=== PATIENT | female | born 1985 | race Caucasian/White ===

== ENCOUNTER 2018-12-05 07:43 | Inpatient (IN) ==
[2018-12-05] MEDS ORDERED: OXYTOCIN 30 UNITS/500 ML BAG IV PRN ×2 (08:25→22:10)
--- NOTE | 2018-12-05 08:34 | History & Physical Report ---
Date of Service December 05, 2018 Assessment & Plan (1) Elective induction of labor planned: Patient is a 33 yo at 40.1 wks, h/o macrosomia, normal EFW this time VSS Afebrile, doing well FHR reassuring GBS negative Cervix unfavorable Plan to admit, monitor, cervical ripening with Cervidil Anticipate All questions were answered (2) History of macrosomia in infant in prior , currently : History of Present Illness Chief Complaint: Scheduled IOL Primary Care Provider: NO PCP Patient is a 33 yo at 40.1 wks, who is scheduled for IOL at term due to h/o macrosomia with her last baby No complaints No ctxs/ LOF/VB +FM No NDIAYE/ Change in vision/ N&V/ epig or RUQ pain Her has been uncomplicated GBS negative Her second baby was 9' 12", 41.3 wks, IOL, no shoulder dystocia, no lacerations She had US during this on 11/21 and EFW was WNL Allergies Allergy/AdvReac Type Severity Reaction Status Date / Time No Known Allergies Allergy Mild Unverified 07/22/11 21:27 Home Medications Home Medications Medication Instructions Recorded Confirmed Type PNV cmb#95-ferrous fumarate-FA 1 tab PO DAILY 02/22/18 02/22/18 History [] Patient History Medical History History of miscarriage Family History Other Family history non-contributory Social History Preferred Language: [place] Communication Ability: Effective Wagon Driller Required: No Beliefs That Will Affect Care: None marital status: Current Living Situation: Spouse Other Information That Helps Us Care for You: No Feels Safe at Home: Yes Safety Concerns: Feels Safe At This Time Smoking Status: Never smoker Hx Alcohol Use: No Hx Substance Use: No OB History 2 FT 3 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
[2018-12-05] MEDS ORDERED: DINOPROSTONE 10 MG INSERT PV ONE (08:45)
[2018-12-05 08:54] LABS: Hematocrit (blood only) 34.1 % (37-47); Hemoglobin 11.1 g/dL (12.0-16.0); Mean Corpuscular Volume 84.6 fL (80-100); Mean Platelet Volume 9.8 fL (7.4-10.4); Platelet Count 213 K/uL (130-400); RDW Coefficient of Variation 14.6 % (11.5-14.5); RDW Standard Deviation 45.4 fL (36.4-46.3); Red Blood Count 4.03 M/uL (4.2-5.4)
--- NOTE | 2018-12-05 08:56 | Obstetrical Progress Note ---
Date of Service December 05, 2018 Subjective Cervidil is in Discussed what to expect FHR reassuring Continue to monitor Results & Data Vital Signs (Past 12 Hours) Vital Signs Temp Pulse Resp BP 12/05/18 07:48 110 H 127/74 12/05/18 07:45 36.6 C 18
[2018-12-05 09:10] LABS: Mean Corpuscular Hgb Conc 32.6 g/dL (32-36)
--- NOTE | 2018-12-05 15:09 | Obstetrical Progress Note ---
Date of Service December 05, 2018 Subjective Patient is reevaluated She feels well, no complaint No ctxs/ cramping/ nor tightening No LOF/VB +FM VSS Afebrile FHR reassuring No ctxs on toco Plan to continue with cervical ripening and remove cervidil at 12 hour jayla Continue to monitor Results & Data Vital Signs (Past 12 Hours) Vital Signs Temp Pulse Resp BP 12/05/18 12:05 36.7 C 98 H 20 125/76 12/05/18 07:48 36.6 C 110 H 18 127/74 12/05/18 07:45 36.6 C 18
--- NOTE | 2018-12-05 22:12 | Obstetrical Progress Note ---
Date of Service December 05, 2018 Subjective Patient is reevaluated Cervidil was removed, she ate dinner She has not been feeling ctxs, mild cramps, but has been irregular No LOF/VB +FM VSS Afebrile VE; 2-3 cm/ 30%/ -3, softer and stretchable FHR has been categ I Plan to start pitocin and AROM when able Anticipate Results & Data Vital Signs (Past 12 Hours) Vital Signs Temp Pulse Resp BP 12/05/18 21:20 20 12/05/18 21:00 20 12/05/18 20:15 18 12/05/18 18:39 89 123/73 12/05/18 18:30 18 12/05/18 17:00 20 12/05/18 15:30 20 12/05/18 15:15 36.6 C 20 12/05/18 15:12 87 123/75 12/05/18 12:05 36.7 C 98 H 20 125/76
[2018-12-05] MEDS: LACTATED RINGER'S 1,000 ML IV PRN (22:21)
[2018-12-06] MEDS ORDERED: BUPIVACAINE 0.25% 30 ML VIAL ONE (03:42)
[2018-12-06] MEDS ORDERED: ePHEDrine sulfate 50 MG/ML AMP ONE (03:42)
[2018-12-06] MEDS ORDERED: fentaNYL citrate 100 MCG/2 ML VIAL ONE (03:43)
[2018-12-06] MEDS ORDERED: fentaNYL 2MCG/ML ROPIV 1.25MG/ML 100 ML BAG EPI ONE (03:43)
[2018-12-06] MEDS: LACTATED RINGER'S 1,000 ML IV PRN (03:43)
[2018-12-06] MEDS ORDERED: DiphenhydrAMINE HCL 50 MG/ML VIAL IV PRN (03:47)
[2018-12-06] MEDS ORDERED: NALOXONE HCL 1 MG in SODIUM CHLORIDE 0.9% 1000ML 1,000 ML IV PRN (03:47)
[2018-12-06] MEDS ORDERED: NALBUPHINE HCL INJ 10 MG/ML AMP IV PRN (03:47)
[2018-12-06] MEDS ORDERED: ONDANSETRON INJ 2 MG/ML 2 ML VIAL IV PRN (03:47)
[2018-12-06] MEDS ORDERED: ePHEDrine sulfate 50 MG/ML AMP IV PRN (03:47)
[2018-12-06] MEDS ORDERED: fentaNYL 2MCG/ML ROPIV 1.25MG/ML 100 ML BAG EPI PRN (03:47)
[2018-12-06] MEDS ORDERED: NALOXONE HCL 0.4 MG/1 ML VIAL/CARP IV PRN (03:47)
--- NOTE | 2018-12-06 03:53 | Anesthesiology Consultation ---
Date of Service December 06, 2018 Assessment & Plan (1) Encounter for pre-operative examination: Chart Review Chart Review: Patient NOT seen in Pre Admission Testing and Acceptable Risk for Labor Epidural Consults Requested none History Height/Weight Height: 5 ft 7 in Weight: 103.873 kg Allergies Allergy/AdvReac Type Severity Reaction Status Date / Time No Known Allergies Allergy Mild Unverified 07/22/11 21:27 Medications Home Medications Medication Instructions Recorded Confirmed Last Taken PNV cmb#95-ferrous fumarate-FA 1 tab PO DAILY 02/22/18 12/05/18 1 Day Ago [] ~12/04/18 cholecalciferol (vitamin D3) 2,000 unit PO DAILY 12/05/18 12/05/18 1 Day Ago ~12/04/18 omega 7-bjh-olu-fish oil [Fish Oil] 1 cap PO DAILY 12/05/18 12/05/18 3 Days Ago ~12/02/18 Active Medications Generic Name Dose Route Start Last Admin Trade Name Freq PRN Reason Stop Dose Admin Lactated Ringer's 1,000 mls @ 150 mls/hr 12/05/18 08:25 12/06/18 03:49 Lr IV 12/07/18 08:24 999 mls/hr .[id number] PRN Infusion L&D Protocol Protocol Oxytocin 30 units in 500 mls @ 0 mls/hr 12/05/18 22:10 12/06/18 04:08 Pitocin IV 12/07/18 22:09 0.54 units/hr .Q0M PRN 9 mls/hr Labor Induction/Augmentation Titration Protocol 0 UNITS/HR Past Medical History Medical History [place] teeth extracted 2003 History of miscarriage SAB X3; ',,18 Exercise / Class Metabolic Activity II 4-5 Yardwork/Stairs/Walk up hill Past Family History Family History Other Family history non-contributory Past Surgical History Surgical History History of laparoscopic cholecystectomy 2011 Past Anesthesia History No Hx of Anesthesia Complications and No Family Hx of Anesthesia Complications History of PONV No Hx of PONV and No Hx of Motion Sickness Social History Smoking Status: Never smoker Hx Alcohol Use: No Hx Substance Use: No Physical Exam Vital Signs Last Vital Signs Temp 36.4 C L 12/06/18 03:43 Pulse 100 H 12/06/18 04:07 Resp 20 12/06/18 04:03 BP 139/87 12/06/18 04:07 Pulse Ox 98 12/06/18 04:05 Testing Laboratory Results 12/05/18 08:44 Blood Type O Positive 12/05/18 08:44 Antibody Screen NEGATIVE 12/05/18 08:44
[2018-12-06] MEDS ORDERED: OXYTOCIN 30 UNITS/500 ML BAG IV PRN (06:53)
[2018-12-06] MEDS ORDERED: HYDROCORTISONE ACETATE 25 MG SUPP PR PRN (06:53)
[2018-12-06] MEDS ORDERED: BISACODYL 10 MG SUPP PR PRN (06:53)
[2018-12-06] MEDS ORDERED: ACETAMINOPHEN 325 MG TAB PO PRN (06:53)
[2018-12-06] MEDS ORDERED: DIPHTHERIA/TETANUS/PERTUSSIS 0.5 ML SYR/VIAL IM ONE (06:53)
[2018-12-06] MEDS ORDERED: SUPERCREAM 0.870% 15 GM JAR EXT PRN (06:53)
[2018-12-06] MEDS ORDERED: BENZOCAINE 20% AER SPR 82.5 GM CAN EXT PRN (06:53)
[2018-12-06] MEDS ORDERED: LACTATED RINGER'S 1,000 ML IV SCH (07:00)
--- NOTE | 2018-12-06 12:06 | Delivery Summary ---
DATE OF OPERATION: 12/06/2018 TIME OF DELIVERY OF BABY: 6:30 a.m. TIME OF DELIVERY OF PLACENTA: 6:49 a.m. DETAILS OF DELIVERY: The patient was found to be fully dilated and desired to push. She pushed for 2 times and delivered the head without difficulty and then turtle sign was noted and anterior / left shoulder was checked to be stuck behind the pubic bone. Unable to deliver with minimal traction. Then the nurses were noted of shoulder dystocia. The patient's bed was was lowered down, Agueda maneuver and suprapubic pressure were applied, unable to deliver the anterior shoulder. Then the Posterior/ right arm and shoulder were reached and delivered without difficulty and then the anterior shoulder and the whole baby were delivered without difficulty within les than a minute. The baby was handed off to the mother where mouth and nose were suctioned. Cord was clamped x2 and cut. Then baby started crying and moving vigorously. Cord blood was obtained and vagina and perineum were checked for lacerations. There was only small first-degree laceration on the posterior fourchette which was repaired with 3-0 Vicryl in a running fashion. The placenta was found to be in the vagina, delivered spontaneous as intact and complete. Uterus was explored, found to be empty. Lower segment was cleared of all clots and debris. Fundus was firm. EBL was 200 mL. Mom and baby tolerated the procedure well. Baby was a viable male infant. Apgars 8/9. Weight was 3865 gr. No other complications happened. Mom and baby doing well. At the end of the procedure, sponge, lap, needle count was correct x2. I was present during whole procedure. I attest to the content of the Intraoperative Record and any orders documented therein. Any exceptions are noted below. MTDD
--- NOTE | 2018-12-06 12:14 | Anesthesia Procedure Note ---
Date of Service December 06, 2018 Anesthesia Post Epidural Note Vital Signs Vital Signs: Temp Pulse Resp BP Pulse Ox 37.1 C 97 H 18 125/60 97 12/06/18 05:45 12/06/18 09:06 12/06/18 05:43 12/06/18 09:06 12/06/18 07:20 Pain Intensity Bilateral Lower Abdomen: Pain Intensity: 4 Notes Mental Status: alert / awake / arousable Nausea / Vomiting: adequately controlled Pain: adequately controlled Airway Patency, RR, SpO2: stable & adequate BP & HR: stable & adequate Hydration State: stable & adequate Neuraxial Anesthesia: was administered and sensory block is resolving Anesthetic Complications: no major complications apparent and Pt Satisfied with anesthetic care Epidural: Removed without complications and With tip intact
[2018-12-06] MEDS: IBUPROFEN 600 MG TAB PO PRN ×2 (12:45→18:15)
[2018-12-06] MEDS: PRENATAL VITAMIN 1 TAB PO SCH (12:45)
[2018-12-06] MEDS: FERROUS SULFATE 325 MG TAB PO SCH (12:45)
[2018-12-06] MEDS: DOCUSATE SODIUM 100 MG CAP PO SCH ×2 (12:46→20:40)
[2018-12-07 06:45] LABS: Hematocrit (blood only) 28.6 % (37-47); Hemoglobin 9.2 g/dL (12.0-16.0); Mean Corpuscular Hgb Conc 32.2 g/dL (32-36); Mean Corpuscular Volume 85.6 fL (80-100); Mean Platelet Volume 10.1 fL (7.4-10.4); Platelet Count 183 K/uL (130-400); RDW Coefficient of Variation 15.1 % (11.5-14.5); RDW Standard Deviation 46.7 fL (36.4-46.3); Red Blood Count 3.34 M/uL (4.2-5.4); White Blood Count 8.47 K/uL (4.8-10.8)
[2018-12-07] MEDS: DOCUSATE SODIUM 100 MG CAP PO SCH (08:12)
[2018-12-07] MEDS: FERROUS SULFATE 325 MG TAB PO SCH (08:12)
[2018-12-07] MEDS: PRENATAL VITAMIN 1 TAB PO SCH (08:12)
[2018-12-07] MEDS: IBUPROFEN 600 MG TAB PO PRN ×2 (08:12→17:59)
--- NOTE | 2018-12-07 09:18 | Obstetrical Progress Note ---
Date of Service December 07, 2018 Physical Exam Physical Exam: abdomen soft and non tender vaginal bleeding scant hgb 9.2 no calf tenderness ambulating well Results & Data Vital Signs (Past 12 Hours) Vital Signs Temp Pulse Resp BP 12/07/18 03:00 36.5 C 100 H 18 112/74 12/06/18 23:25 36.4 C L 92 H 18 119/76
[2018-12-07] MEDS ORDERED: BISACODYL 5 MG TABEC PO SCH (20:00)
== END 2018-12-07 18:45 | disposition home or self-care (01) | DRG 807 ==
LOC: 4S1 07:43 → 4S2 12-06 10:31

== ENCOUNTER 2018-12-13 15:06 | Inpatient (IN) ==
[2018-12-13 15:35] LABS: Basophils # (auto) 0.03 K/uL (0-0.2); Basophils % (auto) 0.3 %; Eosinophils % (auto) 1.1 %; Hemoglobin 12.9 g/dL (12.0-16.0); Immature Granulocytes # (auto) 0.02 K/uL (0.00-0.02); Immature Granulocytes % (auto) 0.2 %; Lymphocytes # (auto) 1.86 K/uL (1.2-3.4); Lymphocytes % (auto) 20.3 %; Mean Corpuscular Hgb Conc 33.1 g/dL (32-36); Mean Corpuscular Volume 85.2 fL (80-100); Mean Platelet Volume 9.3 fL (7.4-10.4); Monocytes # (auto) 0.46 K/uL (0.11-0.59); Neutrophils # (auto) 6.69 K/uL (1.4-6.5); Neutrophils % (auto) 73.1 %; Platelet Count 299 K/uL (130-400); RDW Standard Deviation 46.2 fL (36.4-46.3); Red Blood Count 4.58 M/uL (4.2-5.4); White Blood Count 9.16 K/uL (4.8-10.8)
[2018-12-13 15:46] LABS: Partial Thromboplastin Time 26.4 Seconds (21.0-31.0); Prothrombin Time 9.9 Seconds (9.0-12.0)
[2018-12-13 15:52] LABS: Alanine Aminotransferase 53 U/L (12-78); Albumin Level 3.4 gm/dl (3.4-5.0); Aspartate Aminotransferase 18 U/L (15-37); Blood Urea Nitrogen 17 mg/dl (7-18); Calcium 9.5 mg/dl (8.5-10.1); Carbon Dioxide 26 mmol/L (21-32); Chloride 109 mmol/L (98-107); Creatinine Clr Calc Pharmacy 98.5 ml/min; Est GFR (African American) 91.2; Est GFR (Non-African American) 78.7; Glucose 88 mg/dl (70-99); Potassium 3.7 mmol/L (3.5-5.1); Sodium 142 mmol/L (136-145)
[2018-12-13 15:57] LABS: Albumin Globulin Ratio 0.8 (0.9-2); Alkaline Phosphatase 132 U/L (45-117); Bilirubin,Total 0.4 mg/dl (0.2-1); Creatine Kinase 60 U/L (26-192); Globulin 4.2 gm/dl (2.5-4.0); Total Protein 7.6 gm/dl (6.4-8.2); Troponin I < 0.015 ng/ml (0-0.045)
--- NOTE | 2018-12-13 16:03 | Emergency Department Note ---
History of Present Illness General Chief complaint: Chest Pain Stated complaint: SHARP PAIN IN LEFT SIDE Time Seen by Provider: 12/13/18 15:14 History of Present Illness Maximum Pain Intensity: 5 33-year-old female who presents to emergency department with her for evaluation of left-sided chest/rib discomfort that wraps around to the back. The patient reports that her symptoms started approximately 36 hours ago. The patient reports that the pain does seem to be worsened with movement and deep breathing. She denies any falguni shortness of breath. The patient had an uncomplicated vaginal delivery 7 days ago. Patient still has some mild vaginal bleeding, but denies any lower back pain or lower abdominal pain. The patient denies any fever or chills, nausea or vomiting. She also denies any urinary symptoms or diarrhea. The patient reports that she did have some swelling of the right lower extremity earlier in a week, but that went away. The patient rates her discomfort a 5 out of 10. She denies any alleviating factors for the pain. The patient denies any personal or strong family history of cardiopulmonary disease. Home Medications Home Medications Medication Instructions Recorded Confirmed Type PNV cmb#95-ferrous fumarate-FA 1 tab PO DAILY 02/22/18 12/13/18 History [] cholecalciferol (vitamin D3) 2,000 unit PO DAILY 12/05/18 12/13/18 History Allergies Allergy/AdvReac Type Severity Reaction Status Date / Time No Known Allergies Allergy Verified 12/13/18 17:46 Past Med/Surg History Medical History Vitamin D insufficiency History of miscarriage SAB X3; '12,'18,'18 Surgical History History of laparoscopic cholecystectomy 2012 [place] teeth extracted 2003 Family History Father Alive and well Mother Alive and well Social History Preferred Language: Faroese Communication Ability: Effective Mid Level Net Developer Required: No Beliefs That Will Affect Care: None marital status: Current Living Situation: Spouse Other Information That Helps Us Care for You: No Feels Safe at Home: Yes Safety Concerns: Feels Safe At This Time Smoking Status: Never smoker Second Hand Exposure: No ; Hx Alcohol Use: No Hx Substance Use: No Review of Systems HEENT: Denies dizziness, visual problems, hearing loss, tinnitus. Denies difficulty swallowing or oral lesions. PULMONARY: Denies cough, shortness of breath, sputum production or hemoptysis. CARDIOVASCULAR: Denies recent palpitations, dyspnea on exertion, orthopnea or peripheral edema. GASTROINTESTINAL: Denies diarrhea, constipation, nausea, vomiting, or abdominal pain. GENITOURINARY: Denies dysuria, frequency, urgency or nocturia. NEUROLOGIC: Denies history of epilepsy, CVA, TIA or chronic headaches. MUSCULOSKELETAL: Denies history of joint tenderness/swelling. SKIN: Denies rashes or lesions. PSYCHIATRIC: Denies history of depression or mental illness. ENDOCRINE: Denies history of diabetes or thyroid disorders. Physical Exam Vital Signs Vital Signs - 24 hr 12/13/18 15:10 12/13/18 15:25 12/13/18 15:28 Temperature 36.4 C L Temperature Source Oral Oral Sepsis Recent Fever Within 48 Hours No Sepsis Action Taken by Nursing No Action Required Pulse Rate 95 H Pulse Rhythm Regular Pulse Strength Normal Respiratory Rate 16 Respiratory Effort / Characteristics Non-Labored Respiratory Depth Normal Normal Respiratory Pattern Regular Blood Pressure 138/87 Blood Pressure Mean 104 Blood Pressure Position Sitting Pulse Oximetry 97 Oxygen Delivery Method Room Air Room Air CONSTITUTIONAL: Healthy and well nourished. Alert and oriented X 3. Patient does not appear in any acute distress. HEENT: Normocephalic, atraumatic. Pupils equal, round and reactive. No scleral icterus or conjunctival injection. NECK: Full active range of motion without discomfort. LYMPHATICS: No cervical chain adenopathy. RESPIRATORY: Clear to auscultation bilaterally with no wheezing, crackles, rhonchi or stridor. Deep breathing does worsen the patient's discomfort. CARDIOVASCULAR: Regular rate and rhythm with no murmurs, rubs or gallops. GASTROINTESTINAL: Bowel sounds present in all quadrants. No left upper quadrant tenderness to palpation of the abdomen. Negative CVA tenderness. MUSCULOSKELETAL: Full range of motion of all joints without discomfort. Patient has no lower extremity pretibial pitting edema or dependent changes. INTEGUMENTARY: No rash or other significant dermatologic conditions noted. HEMATOLOGIC: No ecchymosis or petechiae. PSYCHIATRIC: Positive affect. NEUROLOGIC: No focal neurologic deficits noted. Course Patient history and physical exam were performed. Nurse's notes were reviewed. Vital signs were reviewed and were normal. O2 saturation is normal. IV access was established, and labs were drawn. The patient refused any analgesics or antiemetics. An initial ECG showed a normal sinus rhythm without any obvious abnormalities. Portable chest x-ray did not show evidence for consolidation, pneumothorax or obvious cardiac prominence. Labs were reviewed to show a normal troponin, CBC and CMP. D-dimer was markedly elevated, and felt to be significantly elevated more than what would be expected with a normal vaginal delivery. Given the patient's symptoms, and discussion with both the patient and with shared medical decision making, the patient elected to undergo CT angiography to rule out pulmonary embolus. The CT scan does show multiple segmental and subsegmental pulmonary emboli, as well as pleural effusions bilaterally. The case was further discussed with Dr. Castelan, ED attending physician, who recommended contacting [facility] [employer] and [facility] hospitalist service. Appropriate initial treatment, preferably IV heparin. Bilateral lower extremity venous Dopplers were performed, and did not show any underlying DVT in either extremity. The case was further discussed with Dr. Harrington, [facility], who agrees with admission given her risk for bleed. Case was then discussed with the [facility] hospitalist service, who agrees with administering heparin bolus for treatment. The patient was ordered standard adult heparin bolus prior to transfer of care to the hospitalist service. Please see their dictation for further treatment and final disposition. Administered Medications Acetaminophen (Tylenol) 650 mg PO Q4H PRN PRN Reason: Pain or Fever Stop: 01/12/19 19:29 Last Admin: 12/13/18 20:37 Dose: 650 mg Documented by: [id number] Enoxaparin Sodium (Lovenox) 90 mg SQ Q12H [facility] Stop: 01/12/19 19:59 Last Admin: 12/14/18 09:30 Dose: 90 mg Documented by: [id number] Admin: 12/13/18 20:39 Dose: 90 mg Documented by: [id number] Prenat Multivit/Parc/Iron/Folic Ac ( Vitamin) 1 tab PO DAILY DEE DEE Stop: 01/13/19 08:59 Last Admin: 12/14/18 09:31 Dose: 1 tab Documented by: [id number] Vitamin D (Vitamin D3) 2,000 units PO DAILY [facility] Stop: 01/13/19 08:59 Last Admin: 12/14/18 09:31 Dose: 2,000 units Documented by: [id number] Warfarin Sodium (Coumadin) 5 mg PO DAILY@1600 DEE DEE Stop: 01/12/19 19:29 Last Admin: 12/13/18 21:29 Dose: 5 mg Documented by: [id number] Discontinued Medications Enoxaparin Sodium (Lovenox 1 Mg/Kg Providers Use Dosing Set) 95 mg 1 mg/kg (95 mg) SC Q12H [facility] Stop: 12/13/18 20:00 Last Admin: 12/13/18 20:25 Dose: Not Given Documented by: [id number] Enoxaparin Sodium (Lovenox) 90 mg SQ Q12H [facility] Stop: 12/13/18 18:16 Last Admin: 12/13/18 20:24 Dose: Not Given Documented by: [id number] Heparin Sodium (Porcine) (Heparin Sodium (Porcine)) Confirm Administered Dose 5,000 units .ROUTE .STK-MED ONE Stop: 12/13/18 18:01 Last Admin: 12/13/18 18:16 Dose: Not Given Documented by: [id number] Heparin Sodium/Dextrose () 1 ea IV NOW STA; Protocol Stop: 12/13/18 17:24 Last Admin: 12/13/18 20:21 Dose: Not Given Documented by: [id number] Hydromorphone HCl (Dilaudid) 0.25 mg IV NOW STA Stop: 12/14/18 01:07 Last Admin: 12/14/18 01:17 Dose: Not Given Documented by: [id number] Hydromorphone HCl (Dilaudid) 0.5 mg IV NOW STA Stop: 12/14/18 01:17 Last Admin: 12/14/18 01:27 Dose: 0.5 mg Documented by: [id number] Heparin Sodium/Dextrose (Heparin Sodium/Dextrose) 25,000 units in 500 mls @ 0.02 mls/hr IV .Q24H DEE DEE; Protocol Stop: 01/12/19 17:29 Last Admin: 12/13/18 18:16 Dose: Not Given Documented by: [id number] Ioversol (Optiray 320 125ml) 86 ml IV ONCE PRN PRN Reason: Interaction Checking Stop: 12/17/18 16:35 Last Admin: 12/13/18 16:36 Dose: 86 ml Documented by: [id number] Medical Decision Making Medical Records Attestation: I reviewed the patient's medical records. Home Medications Current Medication List: was personally reviewed by me Laboratory Data Attestation: I reviewed the patient's lab results. Result diagrams: 12/14/18 05:40 12/14/18 05:40 Lab Results 12/13/18 12/13/18 12/13/18 Range/Units 15:20 15:20 15:20 WBC 9.16 (4.8-10.8) K/uL RBC 4.58 (4.2-5.4) M/uL Hgb 12.9 (12.0-16.0) g/dL Hct 39.0 (37-47) % MCV 85.2 (80-100) fL MCH 28.2 (25-34) pg MCHC 33.1 (32-36) g/dL RDW Std Deviation 46.2 (36.4-46.3) fL RDW Coeff of Maribel 15.0 H (11.5-14.5) % Plt Count 299 (130-400) K/uL MPV 9.3 (7.4-10.4) fL Immature Gran % (Auto) 0.2 % Neut % (Auto) 73.1 % Lymph % (Auto) 20.3 % [place] % (Auto) 5.0 % Eos % (Auto) 1.1 % Baso % (Auto) 0.3 % Immature Gran # (Auto) 0.02 (0.00-0.02) K/uL Neut # (Auto) 6.69 H (1.4-6.5) K/uL Lymph # (Auto) 1.86 (1.2-3.4) K/uL [place] # (Auto) 0.46 (0.11-0.59) K/uL Eos # (Auto) 0.10 (0-0.5) K/uL Baso # (Auto) 0.03 (0-0.2) K/uL PT (9.0-12.0) Seconds INR (0.9-1.1) APTT (21.0-31.0) Seconds PTT Ratio D-Dimer 4450 H* (0-500) ug/L FEU Sodium 142 (136-145) mmol/L Potassium 3.7 (3.5-5.1) mmol/L Chloride 109 H (98-107) mmol/L Carbon Dioxide 26 (21-32) mmol/L Anion Gap 7.0 (3-11) BUN 17 (7-18) mg/dl Creatinine 0.95 (0.6-1.2) mg/dl Est Cr Clr Drug Dosing 98.5 ml/min Est GFR ( Amer) 91.2 Est GFR (Non-Af Amer) 78.7 BUN/Creatinine Ratio 18.0 (10-20) Glucose 88 (70-99) mg/dl Calcium 9.5 (8.5-10.1) mg/dl Total Bilirubin 0.4 (0.2-1) mg/dl AST 18 (15-37) U/L ALT 53 (12-78) U/L Alkaline Phosphatase 132 H (45-117) U/L Total Creatine Kinase 60 (26-192) U/L Troponin I < 0.015 (0-0.045) ng/ml Total Protein 7.6 (6.4-8.2) gm/dl Albumin 3.4 (3.4-5.0) gm/dl Globulin 4.2 H (2.5-4.0) gm/dl Albumin/Globulin Ratio 0.8 L (0.9-2) Lipase 155 (73-393) U/L 12/13/18 Range/Units 15:20 WBC (4.8-10.8) K/uL RBC (4.2-5.4) M/uL Hgb (12.0-16.0) g/dL Hct (37-47) % MCV (80-100) fL MCH (25-34) pg MCHC (32-36) g/dL RDW Std Deviation (36.4-46.3) fL RDW Coeff of Maribel (11.5-14.5) % Plt Count (130-400) K/uL MPV (7.4-10.4) fL Immature Gran % (Auto) % Neut % (Auto) % Lymph % (Auto) % [place] % (Auto) % Eos % (Auto) % Baso % (Auto) % Immature Gran # (Auto) (0.00-0.02) K/uL Neut # (Auto) (1.4-6.5) K/uL Lymph # (Auto) (1.2-3.4) K/uL [place] # (Auto) (0.11-0.59) K/uL Eos # (Auto) (0-0.5) K/uL Baso # (Auto) (0-0.2) K/uL PT 9.9 (9.0-12.0) Seconds INR 1.0 (0.9-1.1) APTT 26.4 (21.0-31.0) Seconds PTT Ratio 1.0 D-Dimer (0-500) ug/L FEU Sodium (136-145) mmol/L Potassium (3.5-5.1) mmol/L Chloride (98-107) mmol/L Carbon Dioxide (21-32) mmol/L Anion Gap (3-11) BUN (7-18) mg/dl Creatinine (0.6-1.2) mg/dl Est Cr Clr Drug Dosing ml/min Est GFR ( Amer) Est GFR (Non-Af Amer) BUN/Creatinine Ratio (10-20) Glucose (70-99) mg/dl Calcium (8.5-10.1) mg/dl Total Bilirubin (0.2-1) mg/dl AST (15-37) U/L ALT (12-78) U/L Alkaline Phosphatase (45-117) U/L Total Creatine Kinase (26-192) U/L Troponin I (0-0.045) ng/ml Total Protein (6.4-8.2) gm/dl Albumin (3.4-5.0) gm/dl Globulin (2.5-4.0) gm/dl Albumin/Globulin Ratio (0.9-2) Lipase (73-393) U/L Imaging Data Attestation: I personally reviewed and interpreted this imaging study as follows: My Impression: My interpretation of a portable chest x-ray does not show any pneumothorax, consolidations or cardiac prominence. Chest CT angiography shows evidence for segmental and subsegmental pulmonary emboli bilaterally, as well as pleural effusions. Bilateral lower extremity venous Dopplers does not show evidence for DVTs. Radiologist reports were reviewed. Radiologist's Impression: SINGLE VIEW CHEST CLINICAL HISTORY: Atypical chest pain. FINDINGS: An AP, portable, upright chest radiograph is obtained. No prior studies are available for comparison at the time of dictation. The cardiomediastinal silhouette is unremarkable. The lungs and pleural spaces are clear. No pneumothorax is seen. The bony thorax is grossly intact. IMPRESSION: No active disease in the chest. CT ANGIOGRAM OF THE CHEST CLINICAL HISTORY: Atypical chest pain. COMPARISON STUDY: Chest x-ray dated 12/13/2018. TECHNIQUE: Following the IV administration of 86 cc of Optiray 320, CT angiogram of the chest was performed from the upper abdomen to the thoracic inlet utilizing the pulmonary embolus protocol. Images are reviewed in the axial, sagittal, and coronal planes. 3-D MIPS images are created and assessed. IV contrast was administered without complication. A dose lowering technique was utilized adhering to the principles of ALARA. CT DOSE: 459.77 mGy.cm FINDINGS: Thyroid: Imaged portions of the thyroid gland are normal in size and attenuation. Thoracic aorta: The thoracic aorta is normal in caliber and demonstrates standard 3-vessel arch anatomy. No dissection is seen. Pulmonary vasculature: The pulmonary trunk is normal in caliber. There are no filling defects identified in main or lobar pulmonary arteries. There are filling defects within segmental and subsegmental branches of the right lower lobe pulmonary artery consistent with pulmonary embolus. There are also peripheral segmental and subsegmental pulmonary emboli within branches of the left lower lobe pulmonary artery. Heart: The heart is normal in size and without pericardial effusion. Lungs and pleural spaces: There are trace pleural effusions, left larger than right. Atelectasis is noted at the left lung base. No airspace consolidation is seen typical for pneumonia. The trachea and central airways are clear. A punctate calcified granuloma is seen in the right upper lobe. Mediastinum: There is no mediastinal lymphadenopathy. Shirin: Clear. Axillae: There is no axillary lymphadenopathy. Upper abdomen: Partially visualized upper abdominal viscera is within normal limits. Skeletal structures: No lytic or blastic bony lesions are seen. IMPRESSION: 1. There are segmental and subsegmental pulmonary emboli within branches of the right and left lower lobe pulmonary arteries. 2. There are trace pleural effusions, left larger than right with associated atelectasis. 3. No airspace consolidation is seen typical for pneumonia. ULTRASOUND BILATERAL LOWER EXTREMITY VENOUS CLINICAL HISTORY: Pulmonary emboli. COMPARISON STUDY: No priors. TECHNIQUE: Real-time, grayscale, and color Doppler sonography of the deep veins of the right and left lower extremity was performed from the inguinal crease to the calf. Compression and augmentation were utilized. FINDINGS: There is no sonographic evidence of deep venous thrombosis identified in the right or left lower extremity. The common femoral, superficial femoral, and popliteal veins are patent and normally compressible bilaterally. The greater saphenous vein and the profunda femoris vein at the junction with the common femoral vein are clear in both legs. The visualized calf veins are patent bilaterally. IMPRESSION: There is no sonographic evidence of deep venous thrombosis identified in the right or left lower extremity. ECG Data Attestation: I personally reviewed and interpreted this ECG as follows: Indication: chest pain and SOB/dyspnea Rate (beats per minute): 91 Rhythm: normal sinus Findings: + other (No ST elevations, PVCs or other conduction abnormalities) Comparison ECG Date: no prior available Blood Pressure Blood Pressure Findings: Normal blood pressure MDM Narrative Patient presents the emergency department with complaint of left-sided chest pain and shortness of breath. The patient is certainly at high risk for pulmonary embolus, and does have a significantly elevated d-dimer. Her initial work-up did not suggest myocardial infarction or other significant cardiopulmonary etiologies, with a normal portable chest x-ray. Chest CT angiography unfortunately does show evidence for segmental and subsegmental pulmonary emboli bilaterally, as well as pleural effusions. The patient is at r isk for bleed with need for lead tenderness. I do feel that hospital admission is warranted for this condition and her high risk. CT imaging does not show evidence for pneumothorax or pneumonia. ECG and troponin were normal, therefore I do not suspect myocardial infarction. Impression & Plan Bilateral pulmonary embolism Critical Care Time Critical Care Time: Yes Total Critical Care Time: 35 I have personally spent approximately 35 minutes of critical care time in the direct management of this patient. This includes bedside care, interpretation of diagnostic studies, and testing, discussion with consultants, patient, the , and other required patient management activities. This 35 minutes is in excess of all separately billable procedures. Discharge Plan Visit Data *Final* Discharge Date/Time: 12/13/18 18:37 Chief Complaint: Chest Pain Stated Complaint: SHARP PAIN IN LEFT SIDE ED Provider: Godwin Castelan ED Midlevel Provider: Greg Pelayo Discharge Problem: Bilateral pulmonary embolism Patient Disposition: Admitted As Inpatient Discharge Instructions Interventions: ED Discharge Assessment Last Done: 12/13/18 18:37
[2018-12-13 16:06] LABS: D Dimer 4450 ug/L FEU (0-500)
[2018-12-13] MEDS ORDERED: OPTIRAY 320 125ml IV PRN (16:36)
--- NOTE | 2018-12-13 16:53 | XRay Report ---
SINGLE VIEW CHEST CLINICAL HISTORY: Atypical chest pain. FINDINGS: An AP, portable, upright chest radiograph is obtained. No prior studies are available for c omparison at the time of dictation. The cardiomediastinal silhouette is unremarkable. The lungs and pleural spaces are clear. No pneumothorax is seen. The bony thorax is grossly intact. IMPRESSION: No active disease in the chest. Electronically signed by: Jethro Elliott M.D. 12/13/2018 4:51 PM
--- NOTE | 2018-12-13 16:59 | CT Scan Report ---
CT ANGIOGRAM OF THE CHEST CLINICAL HISTORY: Atypical chest pain. COMPARISON STUDY: Chest x-ray dated 12/13/2018. TECHNIQUE: Following the IV administration of 86 cc of Optiray 320, CT angiogram of the chest was per formed from the upper abdomen to the thoracic inlet utilizing the pulmonary embolus protocol. Images are reviewed in the axial, sagittal, and coronal planes. 3-D MIPS images are created and assessed. IV contrast was administered without complication. A dose lowering technique was utilized adhering to the principles of ALARA. CT DOSE: 459.77 mGy.cm FINDINGS: Thyroid: Imaged portions of the thyroid gland are normal in size and attenuation. Thoracic aorta: The thoracic aorta is normal in caliber and demonstrates standard 3-vessel arch anato my. No dissection is seen. Pulmonary vasculature: The pulmonary trunk is normal in caliber. There are no filling defects identif ied in main or lobar pulmonary arteries. There are filling defects within segmental and subsegmental branches of the right lower lobe pulmonary artery consistent with pulmonary embolus. There are also p eripheral segmental and subsegmental pulmonary emboli within branches of the left lower lobe pulmonar y artery. Heart: The heart is normal in size and without pericardial effusion. Lungs and pleural spaces: There are trace pleural effusions, left larger than right. Atelectasis is n oted at the left lung base. No airspace consolidation is seen typical for pneumonia. The trachea and central airways are clear. A punctate calcified granuloma is seen in the right upper lobe. Mediastinum: There is no mediastinal lymphadenopathy. Shirin: Clear. Axillae: There is no axillary lymphadenopathy. Upper abdomen: Partially visualized upper abdominal viscera is within normal limits. Skeletal structures: No lytic or blastic bony lesions are seen. IMPRESSION: 1. There are segmental and subsegmental pulmonary emboli within branches of the right and left lower lobe pulmonary arteries. 2. There are trace pleural effusions, left larger than right with associated atelectasis. 3. No airspace consolidation is seen typical for pneumonia. Electronically signed by: Jethro Elliott M.D. 12/13/2018 4:58 PM
[2018-12-13] MEDS ORDERED: HEPARIN SODIUM/DEXTROSE 25,000 UNITS/500 ML BAG IV SCH (17:30)
--- NOTE | 2018-12-13 17:57 | History & Physical Report ---
Date of Service December 13, 2018 Assessment & Plan (1) Bilateral pulmonary embolism: This is a 33 yr old F who is otherwise healthy presents to [facility] ED secondary to left sided chest wall pain, PITTS x 2 days. Patient vaginally delivered an otherwise healthy baby on 12/06/18 at [facility]. She is 1 week post , minimal vaginal bleeding. Uncomplicated Presents to acute onset L sided chest pain, PITTS Elevated D-Dimer, CTA Chest b/l subsegmental and segmental PE with b/l trace pleural effusion Hemodynamically stable Admit to telemetry for anticoagulation initiation and monitor for post bleeding Lovenox 1mg/kg SQ Q12hr until INR > 2.0 Start warfarin 5mg po daily monitor inr, cbc, bmp echocardiogram to r/o post cardiomyopathy (2) Vitamin D insufficiency: continue vit D supplementation Disposition: discharge to home when able Follow up: PCP Dr. Venkatesh Noble upon discharge Patient was seen and examined in collaboration with Dr. Vargas, please see addendum History of Present Illness Chief Complaint: L sided chest pain x 2 days. Primary Care Provider: Dr. Venkatesh Noble This is a 33 yr old F who is otherwise healthy presents to [facility] ED secondary to left sided chest wall pain, PITTS x 2 days. Patient vaginally delivered an otherwise healthy baby on 12/06/18 at [facility]. 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 No prior complications with pregnancies despite miscarriage. Denies prior hx of DVT or clotting disorder. Starting 12/11 she developed acute onset L sided chest wall pain, anteriorly and laterally, constant, waxed and waned in severity from sharp stab to dull ache, 5/10, made worse with deep breath and movement, improved with shallow breathing and rest. Never had similar sx in past. Did not try anything OTC. Also elicited to PITTS, but denied falguni SOB at rest or hemoptysis. She has minimal post vaginal bleeding that has been improving daily. Changes pad 2-3 x daily just for hygiene not because they are full. Denies any lightheaded, dizziness, syncope, n/v/d, abdominal pain, change in bowel or urinary habits. Also admits to b/l lower ext swelling 3 days after discharge, R > L, now resolved. Denies FH of clotting d/o or dvt. Denies tobacco use. Allergies Allergy/AdvReac Type Severity Reaction Status Date / Time No Known Allergies Allergy Verified 12/13/18 17:46 Home Medications Home Medications Medication Instructions Recorded Confirmed Type PNV cmb#95-ferrous fumarate-FA 1 tab PO DAILY 02/22/18 12/13/18 History [] cholecalciferol (vitamin D3) 2,000 unit PO DAILY 12/05/18 12/13/18 History Past Med/Surg History Medical History Vitamin D insufficiency History of miscarriage SAB X3; ,, Surgical History History of laparoscopic cholecystectomy 2012 [place] teeth extracted 2003 Family History Father Alive and well Mother Alive and well Social History Preferred Language: Greek Communication Ability: Effective 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 Physical Exam Physical Exam: Gen: WD/WN, F, NAD, sitting up in bed, pleasant, conversing easily Head: Normocephalic, Atraumatic Eyes: Sclera normal, no conjunctival injection, PERRLA, EOMI ENT: Gross hearing intact, normal pharynx, mucous membranes moist Neck: supple, no adenopathy, No JVD, no bruit, Resp: Clear to auscultation b/l, no wheeze, rales, rhonchi. Normal insp/exp effort, no accessory muscle use CV: Regular rate, regular rhythm, no murmur, rub, gallop, or ectopy, pain to palpation along left lateral chest wall Abd: +BS x 4, soft, nontender, nondistended Musculoskeletal: moves extremities active rom x 4, strength intact, good oxyhydrogen welder strength Extremities: No edema bilaterally Skin: warm, moist, no rash, negative turgor, cap refill < 2sec Neuro: Alert and oriented x 3, speech normal, good mood/affect, cran nerve 2-12 intact grossly : deferred Results & Data Vital Signs (Past 12 Hours) Vital Signs Temp Pulse Resp BP Pulse Ox 12/13/18 15:10 36.4 C L 95 H 16 138/87 97 Laboratory Results Short CBC 12/13/18 Range/Units 15:20 WBC 9.16 (4.8-10.8) K/uL Hgb 12.9 (12.0-16.0) g/dL Hct 39.0 (37-47) % Plt Count 299 (130-400) K/uL BMP 12/13/18 15:20 Sodium 142 Potassium 3.7 Chloride 109 H Carbon Dioxide 26 BUN 17 Creatinine 0.95 Glucose 88 Calcium 9.5 Cardiac Enzymes 12/13/18 Range/Units 15:20 Total Creatine Kinase 60 (26-192) U/L Troponin I < 0.015 (0-0.045) ng/ml Liver Function 12/13/18 Range/Units 15:20 Total Bilirubin 0.4 (0.2-1) mg/dl AST 18 (15-37) U/L ALT 53 (12-78) U/L Alkaline Phosphatase 132 H (45-117) U/L Albumin 3.4 (3.4-5.0) gm/dl Diagnostic Findings Chest CTA: IMPRESSION: 1. There are segmental and subsegmental pulmonary emboli within branches of the right and left lower lobe pulmonary arteries. 2. There are trace pleural effusions, left larger than right with associated atelectasis. 3. No airspace consolidation is seen typical for pneumonia. CXR: IMPRESSION: No active disease in the chest. Medications Administered Ioversol (Optiray 320 125ml) 86 ml IV ONCE PRN PRN Reason: Interaction Checking Stop: 12/17/18 16:35 Last Admin: 12/13/18 16:36 Dose: 86 ml Documented by: [id number] ECG Rate (beats per minute): 91 Rhythm: normal sinus Additional Comments: left atrial enlargement QTC 450ms Code Status & VTE Plan Code Status Full Code VTE Prophylaxis Plan VTE Prophylaxis will be ordered: Yes Supervising Physician Co-Signing Physician Notes Patient is a 33-year-old female, 1 week after normal vaginal de livery, comes to ED with C/o chest painleft-sided underneath breast for 2 days, pleuritic. Associated with some SOB with exertion. Denies any cough, fever, chills. No edema EXAM: Gen- AAOX3, not in distress Lungs- Air entry decreased on left side. No wheeze, rales Heart- S1, S2 normal, no murmurs Abd- Soft, non tender, non distended, BS + Ext- No edema A/P Post Pulmonary embolism CT scan chest-segmental and subsegmental pulmonary emboli within branches of right and left lower lobe pulmonary arteries. Trace pleural effusions left larger than right with associated atelectasis. No pneumonia or CHF present. Start Lovenox subcu twice daily and Coumadin (breast feeding, so no NOACS) -US duplex, Echo ordered. EKG- Normal with no right ventricular strain Disposition Med surg telemetry
[2018-12-13] MEDS ORDERED: HEPARIN SOD 5,000 UNIT/0.5 ML VIAL ONE (18:00)
[2018-12-13] MEDS ORDERED: ENOXAPARIN 1 MG/KG SC SCH ×2 (18:15)
[2018-12-13] MEDS ORDERED: ENOXAPARIN 100 MG/1ML SYR SQ SCH (18:15)
--- NOTE | 2018-12-13 18:35 | History & Physical Report ---
Date of Service December 13, 2018 History of Present Illness Primary Care Provider: NO PCP Allergies Allergy/AdvReac Type Severity Reaction Status Date / Time No Known Allergies Allergy Verified 12/13/18 17:46 Home Medications Home Medications Medication Instructions Recorded Confirmed Type PNV cmb#95-ferrous fumarate-FA 1 tab PO DAILY 02/22/18 12/13/18 History [] cholecalciferol (vitamin D3) 2,000 unit PO DAILY 12/05/18 12/13/18 History Past Med/Surg History Medical History Vitamin D insufficiency History of miscarriage SAB X3; ,, Surgical History History of laparoscopic cholecystectomy 2012 [place] teeth extracted 2003 Family History Father Alive and well Mother Alive and well Social History Preferred Language: Niuean Communication Ability: Effective 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
--- NOTE | 2018-12-13 19:10 | Ultrasound Report ---
ULTRASOUND BILATERAL LOWER EXTREMITY VENOUS CLINICAL HISTORY: Pulmonary emboli. COMPARISON STUDY: No priors. TECHNIQUE: Real-time, grayscale, and color Doppler sonography of the deep veins of the right and left lower extremity was performed from the inguinal crease to the calf. Compression and augmentation wer e utilized. FINDINGS: There is no sonographic evidence of deep venous thrombosis identified in the right or left lower extremity. The common femoral, superficial femoral, and popliteal veins are patent and normally compressible bilaterally. The greater saphenous vein and the profunda femoris vein at the junction w ith the common femoral vein are clear in both legs. The visualized calf veins are patent bilaterally. IMPRESSION: There is no sonographic evidence of deep venous thrombosis identified in the right or lef t lower extremity. Electronically signed by: Jethro Elliott M.D. 12/13/2018 7:09 PM
[2018-12-13] MEDS ORDERED: MAGNESIUM HYDROXIDE SUSP 30 ML UDC PO PRN (19:30)
[2018-12-13] MEDS ORDERED: POLYETHYLENE (MIRALAX) 17 GM PACK PO PRN (19:30)
[2018-12-13] MEDS ORDERED: ONDANSETRON INJ 2 MG/ML 2 ML VIAL IV PRN (19:30)
[2018-12-13] MEDS ORDERED: ALUMINUM/MAGNESIUM SUSP 30 ML UDC PO PRN (19:30)
[2018-12-13] MEDS: ACETAMINOPHEN 325 MG TAB PO PRN (20:37)
[2018-12-13] MEDS: ENOXAPARIN 100 MG/1ML SYR SQ SCH (20:39)
[2018-12-13] MEDS: WARFARIN SOD 5 MG TAB PO SCH (21:29)
[2018-12-14] MEDS ORDERED: IBUPROFEN 200 MG TAB PO STA (01:05)
[2018-12-14] MEDS ORDERED: HYDROmorphone INJ 0.5 MG/0.5 ML SYR IV STA ×2 (01:06→01:16)
[2018-12-14 05:57] LABS: Hematocrit (blood only) 39.1 % (37-47); Hemoglobin 12.6 g/dL (12.0-16.0); Mean Corpuscular Hgb Conc 32.2 g/dL (32-36); Mean Corpuscular Volume 85.4 fL (80-100); Mean Platelet Volume 9.5 fL (7.4-10.4); Platelet Count 282 K/uL (130-400); RDW Standard Deviation 46.4 fL (36.4-46.3); Red Blood Count 4.58 M/uL (4.2-5.4); White Blood Count 8.49 K/uL (4.8-10.8)
[2018-12-14 06:34] LABS: Calcium 9.3 mg/dl (8.5-10.1); Creatinine Clr Calc Pharmacy 103.1 ml/min; Est GFR (African American) 96.1; Est GFR (Non-African American) 82.9; Potassium 4.1 mmol/L (3.5-5.1)
[2018-12-14] MEDS ORDERED: HYDROCODONE/ACETAMOPHEN 5/325MG TAB PO PRN (07:52)
[2018-12-14] MEDS: ENOXAPARIN 100 MG/1ML SYR SQ SCH ×2 (09:30→20:32)
[2018-12-14] MEDS: CHOLECALCIFEROL 1,000 UNITS TAB PO SCH (09:31)
[2018-12-14] MEDS: PRENATAL VITAMIN 1 TAB PO SCH (09:31)
--- NOTE | 2018-12-14 10:07 | Hospitalist Progress Note ---
Date of Service December 14, 2018 Assessment & Plan (1) Bilateral pulmonary embolism: This is a 33 yr old F who is otherwise healthy, no prior hx of DVT/PE nor family hx presented to [facility] ED secondary to left sided chest wall pain, PITTS x 2 days. Patient vaginally delivered an otherwise healthy baby on 12/06/18 at [facility]. BILATERAL PULMONARY EMBOLISM -Presented with left-sided chest pain, PITTS for 2 days. Found to have elevated D- Dimer, CTA Chest b/l subsegmental and segmental PE with b/l trace pleural effusion -Hemodynamically stable -Chest pain on and off- asking more than tylenol. Ordered Hydrocodone/tylenol q 6 hours PRN. Counseled about minimizing use of pain medications if possible while lactating. Understands. -Started on Lovenox SQ BID and coumadin on admission - 12/13/18 evening. -INR - 1.0 -Work up- Tele - no events, US duplex- Neg for DVT -Monitor (2) Vitamin D insufficiency: -Continue Vitamin D supplementation Disposition: -Discharge to home when able Follow up: -PCP Dr. Venkatesh Noble upon discharge -Likely discharge in AM on Lovenox /Coumadin bridging Subjective Patient had multiple episodes of significant left-sided chest pain, asking for something more than Tylenol-overnight. Feeling better now. Was able to get some rest. Does have some shortness of breath, but looks comfortable. Not in acute distress. No fever, chills, cough. Has been breast-feeding her without any difficulty. Physical Exam Physical Exam: GENERAL- AAOX3, No acute distress LUNGS- Air entry decreased on left side. No rales, rhonchi, crackles, wheezes heard. HEART- Regular rate and rhythm. No murmurs ABDOMEN- Soft, non tender, non distended, Bowel sounds heard. EXTREMITIES- Good peripheral pulses, no edema Results & Data Vital Signs (Past 12 Hours) Vital Signs Temp Pulse Pulse Resp BP Pulse Ox 12/14/18 08:04 36.7 C 100 H 18 134/84 97 12/14/18 07:34 108 H 12/14/18 04:28 36.7 C 96 H 16 114/78 96 12/14/18 01:26 119/73 12/14/18 01:17 103 H 12/13/18 22:46 36.5 C 107 H 18 114/61 96
[2018-12-14] MEDS: WARFARIN SOD 5 MG TAB PO SCH (16:28)
[2018-12-14] MEDS: ACETAMINOPHEN 325 MG TAB PO PRN ×2 (16:31→22:44)
[2018-12-15 06:28] LABS: Prothrombin Time 10.1 Seconds (9.0-12.0)
[2018-12-15] MEDS: PRENATAL VITAMIN 1 TAB PO SCH (07:46)
[2018-12-15] MEDS: ACETAMINOPHEN 325 MG TAB PO PRN ×2 (07:46→16:16)
[2018-12-15] MEDS: CHOLECALCIFEROL 1,000 UNITS TAB PO SCH (07:47)
[2018-12-15] MEDS: ENOXAPARIN 100 MG/1ML SYR SQ SCH (07:47)
[2018-12-15] MEDS ORDERED: IBUPROFEN 200 MG TAB PO STA (10:29)
--- NOTE | 2018-12-15 13:16 | Hospitalist Progress Note ---
Date of Service December 15, 2018 Assessment & Plan (1) Bilateral pulmonary embolism: This is a 33 yr old F who is otherwise healthy, no prior hx of DVT/PE nor family hx presented to [facility] ED secondary to left sided chest wall pain, PITTS x 2 days. Patient vaginally delivered an otherwise healthy baby on 12/06/18 at [facility]. BILATERAL PULMONARY EMBOLISM -Presented with left-sided chest pain, PITTS for 2 days. Found to have elevated D- Dimer, CTA Chest b/l subsegmental and segmental PE with b/l trace pleural effusion -Hemodynamically stable -Chest pain on and off- Tylenol PRN. Hesitant about using Hydrocodone/tylenol q 6 hours PRN as . Counseled about minimizing use of pain medications if possible while lactating. Understands. -Started on Lovenox SQ BID and coumadin on admission - 12/13/18 evening --> INR is till 1.0 --> Increase coumadin to 7.5 mg daily. -Work up- Tele - no events, US duplex- Neg for DVT, Echo- EF 55-60%, Rt ventricle- normal (2) Vitamin D insufficiency: -Continue Vitamin D supplementation Disposition: -Discharge to home when able -Patient is eager to be discharged home. Feels comfortable with discharge plan of lovenox/coumadin. Follow up: -PCP Dr. Venkatesh Noble upon discharge -Likely discharge in AM on Lovenox /Coumadin bridging Subjective Patient still has some chest pain, lower side. Tylenol not enough to control matthew n. Trying to avoid norco. Feeling better now. Denies any SOB. Not in acute distress. No fever, chills, cough. Has been breast-feeding her without any difficulty. Wants to go home Physical Exam Physical Exam: GENERAL- AAOX3, No acute distress LUNGS- Air entry decreased on left side. Some tenderness on palpation at the same spot. No rales, rhonchi, crackles, wheezes heard. HEART- Regular rate and rhythm. No murmurs ABDOMEN- Soft, non tender, non distended, Bowel sounds heard. EXTREMITIES- Good peripheral pulses, no edema Results & Data Vital Signs (Past 12 Hours) Vital Signs Temp Pulse Pulse Resp BP BP Pulse Ox 12/15/18 11:17 36.5 C 92 H 20 122/82 97 12/15/18 10:30 94 H 12/15/18 07:07 37.0 C 97 H 18 115/79 95 12/15/18 04:18 36.7 C 81 16 114/76 96
--- NOTE | 2018-12-15 13:28 | Discharge Summary ---
Date of Service December 15, 2018 Admission HPI Per Admitting Provider This is a 33 yr old F who is otherwise healthy presents to [facility] ED secondary to left sided chest wall pain, PITTS x 2 days. Patient vaginally delivered an otherwise healthy baby on 12/06/18 at [facility]. 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 No prior complications with pregnancies despite miscarriage. Denies prior hx of DVT or clotting disorder. Starting 12/11 she developed acute onset L sided chest wall pain, anteriorly and laterally, constant, waxed and waned in severity from sharp stab to dull ache, 5/10, made worse with deep breath and movement, improved with shallow breathing and rest. Never had similar sx in past. Did not try anything OTC. Also elicited to PITTS, but denied falguni SOB at rest or hemoptysis. She has minimal post vaginal bleeding that has been improving daily. Changes pad 2-3 x daily just for hygiene not because they are full. Denies any lightheaded, dizziness, syncope, n/v/d, abdominal pain, change in bowel or urinary habits. Also admits to b/l lower ext swelling 3 days after discharge, R > L, now resolved. Denies FH of clotting d/o or dvt. Denies tobacco use. Principal Diagnosis pulmonary embolism, bilateral Discharge Exam EXAM: Gen- AAOX3, not in distress Lungs- Air entry decreased on left side. No wheeze, rales Heart- S1, S2 normal, no murmurs Abd- Soft, non tender, non distended, BS + Ext- No edema Discharge Data Allergies Allergy/AdvReac Type Severity Reaction Status Date / Time No Known Allergies Allergy Verified 12/13/18 17:46 Consultations 12/13/18 17:22 ED Decision to Admit Stat Ordered Studies 12/13/18 16:20 CT angio chest PE protocol Stat 12/13/18 17:18 US venous doppler LE BI Stat Hospital Course (1) Bilateral pulmonary embolism: This is a 33 yr old F who is otherwise healthy, no prior hx of DVT/PE nor family hx presented to [facility] ED secondary to left sided chest wall pain, PITTS x 2 days. Patient vaginally delivered an otherwise healthy baby on 12/06/18 at [facility]. BILATERAL PULMONARY EMBOLISM -Presented with left-sided chest pain, PITTS for 2 days. Found to have elevated D- Dimer, CTA Chest b/l subsegmental and segmental PE with b/l trace pleural effusion -Hemodynamically stable -Chest pain on and off- Tylenol PRN. Hesitant about using Hydrocodone/tylenol q 6 hours PRN as . Counseled about minimizing use of pain medications if possible while lactating. Understands. -Started on Lovenox SQ BID and coumadin on admission - 12/13/18 evening --> INR is till 1.0 --> Increase coumadin to 7.5 mg daily. Follow up with coumadin clinic -Work up- Tele - no events, US duplex- Neg for DVT, Echo- EF 55-60%, Rt ventricle- normal (2) Vitamin D insufficiency: -Continue Vitamin D supplementation Disposition: -Patient is eager to be discharged home. Feels comfortable with discharge plan of lovenox/coumadin. Follow up: -PCP Dr. Venkatesh Noble upon discharge -Follow up with coumadin clinic Total Time Total Time Spent Total Time Spent (In Minutes): 35 minutes Discharge Plan Discharge Items Patient Disposition: Home - Self-Care Reason For Visit: PE Discharge Diagnosis: bilateral pulmonary embolism Discharge Goals: Decrease discomfort Activity: Resume your previous activity Non-emergency contact: Primary Care Provider Call non-emergency contact if: your symptoms worsen Follow-up/Referrals: Venkatesh Noble DO [Primary Care Provider] - 12/18/18 12:55 pm Diet: Regular Addtl Provider Instructions: You were admitted to the hospital for bilateral pulmonary embolism. You were started on Lovenox injections subcutaneous and Coumadin. You had an ultrasound duplex done which was negative for any leg clots. You had an echocardiogram of heart done which showed good pumping and no acute findings. MEDICATION CHANGES 1. New medication -Lovenox 90 mg subcutaneously every 12 hours until INR is between 2-3 2. New medicationCoumadin 7.5 mg in the evening starting from today. You will need to take Lovenox injections twice a day and Coumadin both until INR is between 2-3. After that you may discontinue Lovenox and continue with Coumadin. Next INR draw appointment with Coumadin clinic on 12/17/2018-dose to be adjusted according to the INR levels. You will need to take coumadin for at least 3 - 6 months. Prescriptions: New enoxaparin 100 mg/mL Syringe 90 mg subcut Q12H 7 Days Qty: 12.6 RF: 0 warfarin [Coumadin] 7.5 mg Tablet 7.5 mg PO DAILY@1600 14 Days Qty: 21 RF: 0 hydrocodone-acetaminophen [[place]] 5-325 mg tablet 1 tab PO Q8H PRN (Reason: severe pain only) Qty: 10 RF: 0 Continued cholecalciferol (vitamin D3) 2,000 unit Capsule 2,000 unit PO DAILY RF: 0 PNV cmb#95-ferrous fumarate-FA [] 28 mg iron- 800 mcg Tablet 1 tab PO DAILY RF: 0 Stand-Alone Forms: Call Back Authorization, [facility] Discharge Orders: Discharge Order (Routine); Ordered 12/15/18 Ordered By: Patsy Vargas Admission Data Admit Date/Time: 12/13/18 17:46 Attending Provider: Patsy Vargas Admit Provider: Patsy Vargas Primary Care Provider: Venkatesh Noble Other Providers: Patsy Vargas Service: Telemetry
[2018-12-15] MEDS ORDERED: WARFARIN SOD 7.5 MG TAB PO SCH (16:00)
== END 2018-12-15 18:29 | disposition home or self-care (01) | DRG 776 ==
LOC: ED 15:06 → 2E 17:46